=== PATIENT | female | born 1960 | race Caucasian/White ===

== ENCOUNTER 2019-06-23 20:34 | Emergency (ER) | payer BC ==
[2019-06-23 21:33] VITALS: BP 136/87; PULSE 87
--- NOTE | 2019-06-23 21:43 | EDM.PDOC ---
ED HPI GENERAL MEDICAL PROBLEM - General Chief Complaint: Bite:Animal, Insect Stated Complaint: WASP STING Time Seen by Provider: 06/23/19 21:30 Source of Information: Reports: Patient, Family History Limitations: Reports: No Limitations - History of Present Illness INITIAL COMMENTS - FREE TEXT/NARRATIVE: 58-year-old female with a bee sting on the top of her left foot about 4 hours ago. It's very painful. No systemic reaction. Onset: Sudden Duration: Hour(s): (4 hours) Location: Reports: Lower Extremity, Left Associated Symptoms: Reports: No Other Symptoms Left Foot Pain Score (Numeric/FACES): 8 - Related Data Allergies Allergy/AdvReac Type Severity Reaction Status Date / Time No Known Allergies Allergy Verified 06/23/19 21:23 Home Meds: Home Meds Aspirin [Lo-Dose Aspirin EC] 81 mg PO DAILY 08/25/16 [History] Biotin 1,000 mcg PO DAILY 08/25/16 [History] Cholecalciferol (Vitamin D3) [Vitamin D3] 1,000 units PO DAILY 08/25/16 [History ] Hydrochlorothiazide 25 mg PO DAILY 08/25/16 [History] amLODIPine [Norvasc] 10 mg PO DAILY 08/25/16 [History] atorvaSTATin Calcium [Atorvastatin Calcium] 10 mg PO BEDTIME 08/25/16 [History] metFORMIN HCl [Metformin HCl] 500 mg PO DAILY 08/25/16 [History] Multivitamin [Multi-Vitamin Daily] 1 tab PO DAILY 06/23/19 [History] Past Medical History HEENT History: Reports: Impaired Vision Cardiovascular History: Reports: High Cholesterol, Hypertension Gastrointestinal History: Reports: Cholelithiasis Genitourinary History: Reports: Renal Calculus, UTI, Recurrent [employer] History: Reports: Dysfunctional Uterine Bleeding, Musculoskeletal History: Reports: Arthritis, Fracture Hematologic History: Reports: Other (See Below) Other Hematologic History: liver disease (MILLER) - Infectious Disease History Infectious Disease History: Reports: Chicken Pox, Hepatitis non A,B,C, Mumps - Past Surgical History Head Surgeries/Procedures: Reports: None GI Surgical History: Reports: Cholecystectomy, Colonoscopy Female Surgical History: Reports: Endometrial Ablation Musculoskeletal Surgical History: Reports: Carpal Tunnel Social & Family History - Family History Family Medical History: Noncontributory - Tobacco Use Smoking Status *Q: Never Smoker - Caffeine Use Caffeine Use: Reports: Coffee - Recreational Drug Use Recreational Drug Use: No ED ROS GENERAL - Review of Systems Review Of Systems: See Below Constitutional: Denies: Fever, Chills Respiratory: Denies: Shortness of Breath GI/Abdominal: Denies: Nausea, Vomiting Skin: Reports: Erythema (Erythema has developed on the top of the left foot around the bite with mild swelling) Neurological: Denies: Paresthesia ED EXAM, ANIMAL BITE - Physical Exam Exam: See Below Exam Limited By: No Limitations General Appearance: Alert, No Apparent Distress, Anxious Respiratory/Chest: No Respiratory Distress Extremities: Other (Exam is otherwise limited to the left foot. There is erythema and some slight swelling on the top of the foot, no widespread rash or hives) Neurological: Alert, Oriented Psychiatric: Anxious Course - Vital Signs Last Recorded V/S: Last Vital Signs Temp 99.0 F 06/23/19 21:32 Pulse 87 06/23/19 21:32 Resp 17 06/23/19 21:32 BP 136/87 06/23/19 21:32 Pulse Ox 97 06/23/19 21:32 - Re-Assessments/Exams Free Text/Narrative Re-Assessment/Exam: 06/23/19 21:42 An Kumar wrap was supplied to control swelling, and the patient was given 6 hydrocodone to take along with ibuprofen, she can elevate and ice and increase activity as tolerated. Departure - Departure Time of Disposition: 21:53 Disposition: Home, Self-Care 01 Clinical Impression: Accidental bee sting - Discharge Information Instructions: Bee, Wasp, or Hornet Sting, Adult Referrals: Xochitl Diaz PA [Primary Care Provider] - Forms: ED Department Discharge Care Plan Goals: Wrap foot to reduce swelling, elevate, ice may help and continue with ibuprofen. Increase activity as tolerated and use stronger pain medication to help with sleeping.
== END 2019-06-23 21:54 | disposition home or self-care (01) ==
LOC: JP.ED 20:34
DX: T63.441A Toxic effect of venom of bees, accidental (unintentional), initial encounter (principal); E78.00 Pure hypercholesterolemia, unspecified; I10 Essential (primary) hypertension; Z79.82 Long term (current) use of aspirin; Z79.899 Other long term (current) drug therapy; Z87.442 Personal history of urinary calculi
CPT/HCPCS: 99282

== ENCOUNTER 2020-02-04 08:09 | Day surgery (SDC) | payer BC ==
[2020-02-04] MEDS ORDERED: Sodium Chloride 0.9% 1,000 ML IV SCH (08:45)
[2020-02-04] MEDS ORDERED: Propofol 200 MG/20 ML SDV ONE (08:47)
[2020-02-04] MEDS ORDERED: Midazolam 1 MG/ML 2 ML SDV ONE (08:47)
[2020-02-04] MEDS ORDERED: fentaNYL 100 MCG/2 ML SDV ONE (08:47)
[2020-02-04 10:31] VITALS: BP 92/62; PULSE 66
--- NOTE | 2020-02-04 15:03 | OR ---
DATE OF PROCEDURE: 02/04/2020 SURGEON: Wilfrido Dawson MD PROCEDURE: Colonoscopy. FINDINGS: Normal colonoscopy. COMPLICATIONS: None. METHODS EXAMINER: None. PREOPERATIVE DIAGNOSIS: Screening colonoscopy. POSTOPERATIVE DIAGNOSIS: Screening colonoscopy. RISKS: Risks, benefits, alternatives, and limitations including, but not limited to infection, bleeding, and perforation were explained to the patient, who wished to proceed. PROCEDURE IN DETAIL: The patient was placed in left lateral decubitus position. Digital rectal exam was performed without abnormality. Scope was introduced atraumatically to the ileocecal valve. A photo was taken. The scope was brought back through the ascending, transverse, descending colon, and retroflexed. No evidence of old or new blood. No masses. No polyps. No diverticulosis. No abnormalities on retroflexion. The patient tolerated the procedure well. Wilfrido Dawson MD /[id number]
== END 2020-02-04 10:39 | disposition home or self-care (01) ==
LOC: JP.SDS 08:09
PROVIDERS: ATTEND Surgery
DX: Z12.11 Encounter for screening for malignant neoplasm of colon (principal); I10 Essential (primary) hypertension; E78.5 Hyperlipidemia, unspecified; E66.9 Obesity, unspecified; Z68.32 Body mass index [BMI] 32.0-32.9, adult
CPT/HCPCS: 45378; J2250; J2704; J3010; J7030